=== PATIENT | male | born 2000 | race Two or more races ===

== ENCOUNTER 2025-05-12 12:45 | Emergency (ER) | payer MEDICAID, SELFPAY ==
[2025-05-12 12:59] VITALS: BP 127/75; PULSE 50; RESP 18; TEMP 36.8; O2SAT 98; BMI 24.8
--- NOTE | 2025-05-12 13:34 | EDNOTE_ITS ---
ED Head Injury RME/HPI General Chief complaint: Head Injury Stated complaint: Hit his head yesterday in the pool Time Seen by Provider: 05/12/25 12:49 Arrival date/time: 05/12/25 12:45 RME / HPI RME / HPI Narrative: slammed head against pool wall while swimming yesterday, has pain to top of head and neck, incident occurred around 8pm last night, he also states he was drinking last night when this happened, he denies LOC. He denies n/t to bilateral lower extremity. Related Data Allergies Allergy/AdvReac Type Severity Reaction Status Date / Time NKA* Allergy Uncoded 05/12/25 12:50 Review of Systems Review of Systems Systems Reviewed: All systems reviewed, normal except as documented Constitutional Constitutional: Reports system reviewed and no additional complaints, except as documented Cardiovascular Cardiovascular: Reports system reviewed and no additional complaints, except as documented Respiratory Respiratory: Reports system reviewed and no additional complaints, except as documented Musculoskeletal Musculoskeletal: Reports system reviewed and no additional complaints, except as documented Neurologic Neurologic: Reports system reviewed and no additional complaints, except as documented ED Exam General General appearance: Present alert and in no apparent distress Head Head exam: Present atraumatic, normocephalic and normal inspection Eye Eye exam: Present normal appearance, PERRL and EOMI ENT ENT exam: Present normal exam and normal oropharynx Neck Neck exam: Present normal inspection, full ROM and trachea midline Chest Chest inspection: Present normal inspection and symmetric chest wall rise Respiratory Respiratory exam: Present normal lung sounds bilaterally Cardiovascular Cardiovascular exam: Present regular rate and normal rhythm Extremities Exam Extremities exam: Present normal inspection and full ROM Neurological Exam Neurological exam: Present alert, oriented X3, CN II-XII intact, normal gait and reflexes normal Course Quality Measures none Orders Category Date Time Status CT cervical spine wo con Stat Exams 05/12/25 13:[address] head/brain wo con Stat Exams 05/12/25 13:36 Completed HYDROcodone*/APAP 5/325 [[place] 5/325] Med 05/12/25 13:36 Discontinued 1 tab PO X1 ONE Vital Signs Vital signs: Vital Signs Temperature 98.2 F 05/12/25 12:59 Pulse Rate 50 L 05/12/25 12:59 Respiratory Rate 18 05/12/25 12:59 Blood Pressure 127/75 05/12/25 12:59 Pulse Oximetry (%) 98 05/12/25 12:59 Oxygen Delivery Method Room Air 05/12/25 12:59 Head Injury MDM Narrative MDM Narrative:: patient presents to ED with complaint of DONNELLY s/p hit head against pool edge while swimming, he retains FROM To cervical, upper and lower extremity. Imaging studies negative for fracture or brain bleed Patient data External records reviewed:: None Clinical information provided by:: patient Social determinants that could affect healthcare access:: none Patient has the following chronic illnesses:: na How is presenting disease/condition affected by chronic disease/condition?: no chronic disease Evaluation data The following diagnostics were reviewed and interpreted by me:: radiology exam(s) Lab and/or radiology exams considered but not ordered:: radiology exam considered and ordered Interpretation Summary: unremarkable CT scan of brain and cervical spine. Medications / Prescriptions Medications or Prescriptions considered but not ordered:: both considered and ordered Medication administrations:: Medication Administration History Discontinued Medications Hydrocodone Bitart/Acetaminophen (Hydrocodone/[place] 5/325 Tablet) 1 tab PO X1 ONE Stop: 05/12/25 13:37 Last Admin: 05/12/25 14:11 Dose: 1 tab Documented By: KF per above Consultations Consultation(s) initiated? (list below): No Diagnosis Differential diagnosis head injury: concussion without loss of consciousness, epidural hematoma, closed head injury, subarachnoid hematoma, postconcussion syndrome, subdural hematoma and concussion with loss of consciousness Most likely diagnosis given after review of the tests above:: closed head injury Admission Indicated Admission indicated?: not indicated Admission Request Was there a request for admission?: No Disposition Plan Disposition Plan: Discharge Discharge Attestation Discharge Attestation: The patient and all family members were given an opportunity to ask questions and understood the discharge instructions. Discharge instructions specifically effects, indications for sooner follow up or return to the emergency department, and the expected course of current diagnosis. Patient condition: Stable Discharge Plan Plan Patient Disposition: HOME (Self Care) Prescriptions/Referrals Referrals: No Primary/Family,Physician [Primary Care Provider] - In 1 week Problem List Clinical Impression: Closed head injury, Cervical myofascial strain, Contusion of scalp Patient/Caregiver Discharge Instructions Education Materials: ED Scalp Contusion, ED Contusion Scalp Sleep Mon, ED Head Injury (Adult), ED Neck Sprain or Strain Print Language: Azeri Stand Alone Forms: [employer] Award Info., Patient Portal Info Letter
--- NOTE | 2025-05-12 13:36 | XR_ITS ---
Examination: CT brain head without contrast. 2-D sagittal coronal reconstructions Date and time of exam:May 12, 2025 CT 11 hours INDICATIONS: Injury to the head today while swimming, head pain and neck pain CTDI: vol (mGy):49.4 DLP: (mGycm):1033 Technique: Multiple CT axial sections of the brain have been obtained, 5 mm slice thickness. Contrast has not been administered. 2-D sagittal, coronal reconstructions have been obtained Low dose protocols were performed. One or more of the following dose reduction techniques were used; automated exposure control, adjustment of the mA and/or KV according to patient size, use of iterative reconstruction technique. Findings: No significant ventricular enlargement. Intra-axial or extra-axial hemorrhage density is not seen. No mass effect or midline shift Basal cisterns are not remarkable. Fourth ventricle is midline. Cranial vault intact. Impression: Negative for acute hemorrhage, mass effect or midline shift
--- NOTE | 2025-05-12 13:36 | XR_ITS ---
Examination: CT cervical spine without contrast 2-D sagittal reconstructions 2-D coronal reconstructions 3-D reconstructions. Exam date and time:May 12, 2025 1612 hours INDICATIONS: Swimming injury today with injury to the neck, neck pain CTDI:vol (mGy) 8.6 DLP: (mGycm) 181 Technique: Multiple 2 mm axial sections of the cervical spine have been obtained. The coronal and sagittal reconstructions have been obtained. 3-D reconstructions have been obtained. Low dose protocols were performed. One or more of the following dose reduction techniques were used; automated exposure control, adjustment of the mA and/or KV according to patient size, use of iterative reconstruction technique. Findings: Axial sections demonstrate intact base of the skull. C1 exhibit satisfactory relationship to the odontoid. No acute cervical vertebral body fracture seen. Alignment posterior spinous processes satisfactory. Impression: No acute cervical fracture.
[2025-05-12] MEDS: HYDROcodone/APAP 5/325 TABLET 1 TAB PO (14:11)
[2025-05-12 18:17] VITALS: BP 124/77; PULSE 52; RESP 17; TEMP 36.7; O2SAT 99
== END 2025-05-12 18:17 | disposition home or self-care (01) ==
PROVIDERS: Emergency Provider Emergency Medicine
DX: S16.1XXA Strain of muscle, fascia and tendon at neck level, initial encounter (principal); S00.03XA Contusion of scalp, initial encounter; W22.8XXA Striking against or struck by other objects, initial encounter; Y93.11 Activity, swimming; Y92.095 Swimming-pool of other non-institutional residence as the place of occurrence of the external cause
CPT/HCPCS: 70450; 72125; 99284; A9270